=== PATIENT | male | born 1965 | race Caucasian/White ===

== ENCOUNTER 2016-12-02 22:42 | Emergency (ER) | payer BC, OTHER, MEDICAID ==
[~2016-12-02] VITALS: Ht 172.7 cm; Wt 55.0 kg
--- NOTE | 2016-12-02 23:22 | RADRPT ---
PROCEDURE: XR Chest. CLINICAL INDICATION: Sepsis TECHNIQUE: AP Portable chest. COMPARISON: None available FINDINGS: The soft tissues and bones are remarkable for a tracheostomy tube 3.7 cm above the alex. A right central venous catheter is present tip in the superior vena cava. No pneumothorax is present. Low mary ng volumes are present with bibasilar discoid atelectasis. No pleural effusions are present. The me diastinum and heart are normal. IMPRESSION: 1. Tracheostomy tube and right central venous catheter as described above without pneumothorax. 2. Low lung volumes and bibasilar discoid atelectasis. RPTAT: HDC .Lavern Ramirez MD, Date Time Electronically viewed and signed by .Lavern Ramirez MD, on 12/02/2016 23:21 .C/
[2016-12-02] MEDS ORDERED: ACETAMINOPHEN 650 MG SUPP PR ONE (23:30)
[2016-12-02 23:35] VITALS: Ht 172.7 cm; Wt 55.0 kg
[2016-12-02] MEDS ORDERED: CEFEPIME 2GM/50 ML (PMX) 50 ML IVPB STA (23:43)
[2016-12-02 23:52] LABS: ADD UMIC YES; URINE BILIRUBIN (Dip) NEGATIVE (NEGATIVE); URINE BLOOD (Dip) 3+ (NEGATIVE); URINE COLOR LT. YELLOW (YELLOW); URINE GLUCOSE (Dip) NEGATIVE (NEGATIVE); URINE KETONES (Dip) NEGATIVE (NEGATIVE); URINE LEUKOCYTE ESTERASE (Dip) 3+ (NEGATIVE); URINE NITRITE (Dip) NEGATIVE (NEGATIVE); URINE TOTAL PROTEIN (Dip) 1+ (NEGATIVE); URINE UROBILINOGEN (Dip) 0.2 E.U./dL (0.1-1.0)
[2016-12-02 23:58] LABS: HEMATOCRIT 43.9 % (42.0-52.0); HEMOGLOBIN 14.6 g/dl (14.0-18.0); LYMPHOCYTES % 4.8 % (15.0-51.0); MEAN CORPUSCULAR HEMOGLOBIN 32.6 pg (29.0-33.0); MEAN CORPUSCULAR HGB CONC 33.2 g/dl (32.0-37.0); MEAN CORPUSCULAR VOLUME 98.3 fl (82.0-101.0); MEAN PLATELET VOLUME 9.1 fl (7.4-10.4); MONOCYTE # 1.1 10^3/ul (0.3-0.9); MONOCYTES % 5.5 % (0.0-11.0); NEUTROPHILS % 89.7 % (39.0-77.0); PLATELET COUNT 493 10^3/UL (140-440); RED BLOOD COUNT 4.47 10^6/ul (4.70-6.10); RED CELL DISTRIBUTION WIDTH 14.6 % (11.5-14.5)
[2016-12-03] MEDS ORDERED: VANCOMYCIN 1 GM (PMX) 250 ML IVPB ONE
[2016-12-03] MEDS ORDERED: SOD CHLORIDE 0.9% 1,710 ML IV ONE
[2016-12-03 00:04] LABS: CONDITION 1; LH ANALYZER COMMENTS 1; SUSPECT 1
[2016-12-03 00:07] LABS: ALBUMIN 4.1 g/dl (3.3-4.9)
[2016-12-03 00:08] LABS: POTASSIUM 5.7 mmol/L (3.5-5.1)
[2016-12-03 00:10] LABS: ALBUMIN/GLOBULIN RATIO 0.89; BILIRUBIN,INDIRECT 0.2 mg/dl (0-1.1); BILIRUBIN,TOTAL 0.2 mg/dl (0.2-1.3); CREATININE 4.13 mg/dl (0.61-1.24); TOTAL PROTEIN 8.7 g/dl (6.1-8.1)
[2016-12-03 00:11] LABS: CALCIUM 10.4 mg/dl (8.4-10.2)
[2016-12-03 00:13] LABS: INR 1.4; PROTIME 17.2 Sec (12.2-14.2); PT RATIO 1.3
[2016-12-03 00:14] LABS: PARTIAL THROMBOPLASTIN TIME 33.8 Sec (25.0-35.0)
[2016-12-03 00:20] LABS: TROPONIN-I 0.114 ng/ml (0.00-0.12)
[2016-12-03 00:29] LABS: SQUAMOUS EPITHELIAL CELL,UR FEW; URINE RBCS >200 /HPF (0)
--- NOTE | 2016-12-03 03:25 | ERA ---
ER Documentation Chief Complaint Date/Time DATE: 12/03/16 TIME: 03:23 Chief Complaint [facility] & hematuria[facility] There is a 51-year-old male sent in from senior living facility for fever and hematuria. Patient is a tracheostomy to vent patient. History is limited secondary to patient's current baseline mental status. History per snf transfer sheet. ROS All systems reviewed and are negative except as per history of present illness. Medications Home Meds Reported Medications Acetaminophen* (Acetaminophen*) 650 Mg Tablet, 650 MG PO TRACH CHANGE, #30 TAB 12/03/16 Acetaminophen* (Acetaminophen*) 650 Mg Tablet, 650 MG GTB Q4 Y for PAIN AND OR ELEVATED TEMP, #30 TAB 12/03/16 Acetaminophen* (Acetaminophen*) 500 MG Extra Strength Tablet, 1000 MG PO Q4 Y for PAIN AND OR ELEVATED TEMP, TAB 12/03/16 Cran/Vitc/Mannose/Inulin/Brom (Uti-Stat Liquid) 3,875 Mg/30 Ml Liquid, 3875 MG GTB BID 12/03/16 Ascorbic Acid* (Vitamin C*) 500 Mg Capsule.sa, 500 MG GTB DAILY, CAP 12/03/16 Zinc Sulfate* (Zinc Sulfate*) 220 Mg Tablet, 220 MG GTB DAILY, TAB 12/03/16 Hydrocodone/Acetaminophen ([place] 5-325 Tablet) 1 Each Tablet, 1 EACH GTB Q12 Y for PAIN, TAB 12/03/16 Multivitamins* (Theragran*) 1 Tab Tab, 1 TAB GTB DAILY, TAB 12/03/16 Modafinil* (Modafinil*) 100 Mg Tablet, 100 MG GTB DAILY, TAB 12/03/16 Polyethylene Glycol* (Miralax*) 17 Gm Powd.pack, 17 GM GTB BID Y for CONSTIPATION, #60 PACKET 12/03/16 Magnesium Hydroxide* (Milk Of Magnesia*) 400 Mg/5 Ml Oral.susp, 30 ML GTB DAILY , ML 12/03/16 Metoclopramide Hcl* (Metoclopramide Hcl*) 10 Mg Tablet, 10 MG GTB Q8 Y for NAUSEA AND OR VOMITING, TAB 12/03/16 Lansoprazole* (Lansoprazole*) 30 Mg Capsule.dr, 30 MG GTB DAILY, CAP 12/03/16 Glipizide* (Glipizide*) 5 Mg Tablet, 2.5 MG GTB AC BREAKFAST LUNCH, TAB 12/03/16 Na Phos,M-B/Na Phos,Di-Ba (ENEMA) 133 Ml Enema, 133 ML RC PRN, ENEMA 12/03/16 Bisacodyl (Dulcolax) 10 Mg Supp.rect, 10 MG RC PRN, SUPP.RECT 12/03/16 Chlorhexidine Gluconate (Peridex) 473 Ml Mouthwash, 473 ML MM Q12, BOTTLE 12/03/16 Benazepril Hcl* (Benazepril Hcl*) 5 Mg Tablet, 5 MG GTB DAILY, #30 TAB 12/03/16 Amlodipine Besylate* (Amlodipine Besylate*) 10 Mg Tablet, 10 MG GTB DAILY, #30 TAB 12/03/16 Amantadine Hcl* (Amantadine Hcl*) 100 Mg Tablet, 100 MG GTB BID, #60 TAB 12/03/16 Allergies Allergies: Coded Allergies: No Known Allergy (Unverified , 12/03/16) PMhx/Soc History of Surgery: Yes (gastrectomy, tracheostomy) Anesthesia Reaction: No Hx Neurological Disorder: Yes (quadraplegic) Hx Respiratory Disorders: Yes (arf) Hx Cardiac Disorders: Yes (htn) Hx Miscellaneous Medical Probl: Yes (dm, hydrocephally, anemia, sacral pressure ulcer, contractures) Hx Alcohol Use: No Hx Substance Use: No Hx Tobacco Use: No Smoking Status: Never smoker Physical Exam Vitals Vital Signs Date Time Temp Pulse Resp B/P Pulse Ox O2 Delivery O2 Flow Rate FiO2 12/03/16 17:10 120 38 100 50 12/03/16 17:00 99.0 97 36 138/118 97 Mechanical Ventilator 5.0 12/03/16 15:30 99.0 115 36 142/130 98 Mechanical Ventilator 5.0 12/03/16 15:10 118 40 100 50 12/03/16 13:30 101.5 120 36 82/22 98 Mechanical Ventilator 12/03/16 13:00 132 38 100 50 12/03/16 12:30 101.0 124 36 95/78 100 Mechanical Ventilator 12/03/16 11:30 100.9 125 32 100/76 96 Mechanical Ventilator 12/03/16 11:00 126 32 86/73 96 Mechanical Ventilator 12/03/16 10:55 126 36 99 100 12/03/16 10:00 126 32 94/76 100 Mechanical Ventilator 12/03/16 09:15 130 38 95 100 12/03/16 09:00 103.1 136 32 130/78 100 Mechanical Ventilator 12/03/16 08:30 134 32 114/62 100 Mechanical Ventilator 12/03/16 07:30 140 36 109/90 96 Mechanical Ventilator 12/03/16 07:30 133 40 90 100 12/03/16 06:30 137 36 107/80 94 Trach Collar 5.0 12/03/16 05:49 102.9 122 36 125/57 95 Room Air 3.0 Trach Collar 12/03/16 03:08 100.3 130 24 119/88 95 Room Air 3.0 Trach Collar 12/03/16 01:42 101.0 120 26 118/82 95 Trach Collar 3.0 12/03/16 00:18 118 25 110/76 95 Trach Collar 12/02/16 23:35 103.3 139 40 113/91 97 12/02/16 23:02 96 3.0 Physical Exam Const: [] Head: Atraumatic Eyes: Normal Conjunctiva ENT: Normal External Ears, Nose and Mouth. trach site C/D/I Neck: Full range of motion..~ No meningismus. Resp: Decreased breath sounds in all lung klein. Cardio: Regular rate and rhythm, no murmurs Abd: Soft, non tender, non distended. Normal bowel sounds Skin: No petechiae or rashes Back: No midline or flank tenderness Ext: No cyanosis, or edema Neur: Awake and alert Psych: Normal Mood and Affect Result Diagram: 12/03/16 0730 12/03/16 1530 Results 24 hrs Laboratory Tests Test 12/02/16 23:30 12/02/16 23:40 12/03/16 01:00 12/03/16 05:33 Urine Bilirubin NEGATIVE Urine Clarity CLEAR Urine Color LT. YELLOW Urine Glucose NEGATIVE% Urine Hemoglobin 3+ Urine Ketones NEGATIVE Urine Leukocyte Esterase 3+ Urine Microscopic RBC >200/HPF Urine Microscopic WBC >50/HPF Urine Nitrite NEGATIVE Urine Other FEW Urine Specific [place] 1.010 Urine Squamous Epithelial Cells FEW Urine Total Protein 1+ Urine Urobilinogen 0.2 E.U./dL Urine pH 5.5 Activated Partial Thromboplast Time 33.8Sec Alanine Aminotransferase (ALT/SGPT) 69IU/L Albumin 4.1g/dl Albumin/Globulin Ratio 0.89 Alkaline Phosphatase 158IU/L Anion Gap 32 Aspartate Amino Transf (AST/SGOT) 63IU/L Basophils # 0.010^3/ul Basophils % 0.0% Blood Morphology Comment Blood Urea Nitrogen 135mg/dl Calcium Level 10.4mg/dl Carbon Dioxide Level 24mmol/L Chloride Level 107mmol/L Creatinine 4.13mg/dl Direct Bilirubin 0.00mg/dl Eosinophils # 0.010^3/ul Eosinophils % 0.0% Globulin 4.60g/dl Glucose Level 296mg/dl Hematocrit 43.9% Hemoglobin 14.6g/dl INR International Normalized Ratio 1.40 Indirect Bilirubin 0.2mg/dl Lactic Acid Level 5.9mmol/L 3.6mmol/L 3.4mmol/L Lymphocytes # 1.010^3/ul Lymphocytes % 4.8% Mean Corpuscular Hemoglobin 32.6pg Mean Corpuscular Hemoglobin Concent 33.2g/dl Mean Corpuscular Volume 98.3fl Mean Platelet Volume 9.1fl Monocytes # 1.110^3/ul Monocytes % 5.5% Neutrophils # 18.010^3/ul Neutrophils % 89.7% Nucleated Red Blood Cells # 0.010^3/ul Nucleated Red Blood Cells % 0.0/100WBC Platelet Count 11991^3/UL Potassium Level 5.7mmol/L Prothrombin Time 17.2Sec Prothrombin Time Ratio 1.3 Red Blood Count 4.4710^6/ul Red Cell Distribution Width 14.6% Sodium Level 157mmol/L Total Bilirubin 0.2mg/dl Total Protein 8.7g/dl Troponin I 0.114ng/ml White Blood Count 20.010^3/ul Test 12/03/16 07:07 12/03/16 07:30 12/03/16 07:31 12/03/16 11:05 Arterial Blood HCO3 16.9mmol/L Arterial Blood Base Excess -8.2mmol/L Arterial Blood Oxygen Saturation 99.0mmHG Demetrio Test N/A Arterial Blood Gas Puncture Site Femoral Arterial Blood Carboxyhemoglobin 0.3% Arterial Blood Date Drawn 12/03/2016 1:04:18 PM Arterial Blood Methemoglobin 0.4% Arterial Blood pCO2 (Temp correct) 33.5mmhg Arterial Blood pH (Temp corrected) 7.320 Arterial Blood pO2 (Temp corrected) 209.8mmHG Blood Gas A-a O2 Differential 469.7mmHg Blood Gas Actual Respiration Rate 36 Blood Gas Critical Value Read Back DR. Damon ALVARADO Blood Gas Inspiratory Pressure 26.0 Blood Gas Low PEEP Setting 5.0cmH2O Blood Gas Modality VENT - AC Blood Gas Notified Time 11/26/2016 1:12:26 PM Blood Gas Notified Whom TRINH RT Blood Gas Respiration Rate 16.0 Blood Gas Specimen Source Blood arterial Blood Gas Temperature 37.0C Blood Gas Tidal Volume 500.0mL FiO2 100.0% Oxyhemoglobin Percent 98.3% Total Hemoglobin 13.8g/dl Alanine Aminotransferase (ALT/SGPT) 223IU/L Albumin 3.5g/dl Albumin/Globulin Ratio 1.02 Alkaline Phosphatase 123IU/L Anion Gap 29 Aspartate Amino Transf (AST/SGOT) 189IU/L Basophils # 0.010^3/ul Basophils % 0.3% Blood Urea Nitrogen 152mg/dl Calcium Level 9.2mg/dl Carbon Dioxide Level 20mmol/L Chloride Level 112mmol/L Creatinine 4.60mg/dl Differential Comment AUTO w/SCAN Direct Bilirubin 0.00mg/dl Eosinophils # 0.010^3/ul Eosinophils % 0.0% Globulin 3.40g/dl Glucose Level 347mg/dl Hematocrit 41.8% Hemoglobin 13.9g/dl Hemoglobin A1c 6.0% Indirect Bilirubin 0.3mg/dl Lymphocytes # 1.310^3/ul Lymphocytes % 9.0% Magnesium Level 3.7mg/dl Mean Corpuscular Hemoglobin 32.7pg Mean Corpuscular Hemoglobin Concent 33.3g/dl Mean Corpuscular Volume 98.2fl Mean Platelet Volume 9.0fl Monocytes # 1.010^3/ul Monocytes % 6.9% Neutrophils # 12.010^3/ul Neutrophils % 83.8% Nucleated Red Blood Cells # 0.010^3/ul Nucleated Red Blood Cells % 0.0/100WBC Platelet Count 92285^3/UL Potassium Level 5.9mmol/L Red Blood Count 4.2610^6/ul Red Cell Distribution Width 14.2% Sodium Level 155mmol/L Total Bilirubin 0.3mg/dl Total Protein 6.9g/dl White Blood Count 14.410^3/ul Bedside Glucose 337mg/dL Urine Bacteria FEW Urine Bilirubin 1+ Urine Clarity CLEAR Urine Color RED Urine Glucose NEGATIVE% Urine Hemoglobin 3+ Urine Ictotest NEGATIVE Urine Ketones TRACE Urine Leukocyte Esterase 3+ Urine Microscopic RBC >200/HPF Urine Microscopic WBC 10-25/HPF Urine Nitrite NEGATIVE Urine Random Creatinine 31.50mg/dl Urine Random Sodium 119mmol/L Urine Specific [place] 1.020 Urine Squamous Epithelial Cells FEW Urine Total Protein mg/dl Urine Urobilinogen 1.0 E.U./dL Urine pH 6.5 Test 12/03/16 12:00 12/03/16 12:17 12/03/16 15:30 Anion Gap 30 Blood Urea Nitrogen 154mg/dl Calcium Level 9.1mg/dl Carbon Dioxide Level 20mmol/L Chloride Level 112mmol/L Creatinine 4.40mg/dl Free Thyroxine 1.15ng/dl Glucose Level 343mg/dl Potassium Level 6.3mmol/L 5.9mmol/L Sodium Level 156mmol/L Bedside Glucose 222mg/dL Current Medications Medications (Trade) Dose Ordered Sig/Dorota Route PRN Reason Start Time Stop Time Status Last Admin Dose Admin Acetaminophen 650 mg 650 mg ONCE ONCE [place] 12/02/16 23:30 12/02/16 23:31 DC 12/02/16 23:30 Sodium Chloride 1,710 ml @ 1,710 mls/hr BOLUS X1 ONCE IV 12/03/16 00:00 12/03/16 00:59 DC 12/02/16 23:58 Cefepime HCl 50 ml @ 100 mls/hr ONCE STAT IVPB 12/02/16 23:43 12/03/16 00:12 DC 12/02/16 23:57 Vancomycin HCl (Vancocin) 250 ml @ 125 mls/hr ONCE ONCE IVPB 12/03/16 00:00 12/03/16 01:59 DC 12/03/16 00:24 Acetaminophen 650 mg 650 mg ONCE ONCE [place] 12/03/16 06:00 12/03/16 06:01 DC 12/03/16 05:45 Dextrose (D5W) 1,000 ml @ 100 mls/hr Q10H IV 12/03/16 07:00 12/03/16 10:46 DC 12/03/16 07:34 IV Flush (NS 3 ml) 3 ml PER PROTOCOL IV 12/03/16 07:00 Lorazepam (Ativan) 0.5 mg Q6H PRN IV ANXIETY 12/03/16 07:00 Ondansetron HCl (Zofran Inj) 4 mg Q6H PRN IV NAUSEA AND/OR VOMITING 12/03/16 07:00 Acetaminophen (Tylenol Supp) 650 mg Q6H PRN [place] PAIN LEVEL 1-3 OR FEVER 12/03/16 07:00 12/03/16 12:31 Famotidine (Pepcid Iv) 20 mg DAILY IV 12/03/16 09:00 12/03/16 08:42 Heparin Sodium (Porcine) (Heparin (5000 Units/0.5 ml)) 5,000 unit Q12 SC 12/03/16 09:00 12/03/16 13:21 DC 12/03/16 08:43 Levalbuterol (Xopenex Neb) 0.63 mg Q3H RESP THERAPY PRN HHN SOB, wheezing 12/03/16 07:00 Vancomycin HCl VANCOMYCIN PER PHARMACY PER PROTOCOL XX 12/03/16 07:00 Cefepime HCl (Maxipime 1gm/50 ml (Pmx)) 50 ml @ 100 mls/hr 21 IVPB 12/03/16 21:00 Sodium Polystyrene Sulfonate (Kayexalate) 30 gm ONCE ONCE GTB 12/03/16 07:00 12/03/16 07:05 DC 12/03/16 07:37 Insulin Aspart (Novolog Insulin Pen) NOVOLOG *MODERATE* ALGORITHM WITH MEALS BEDTIME SC 12/03/16 08:00 Insulin Glargine (Lantus) 15 unit DAILY@08 SC 12/03/16 07:00 12/03/16 07:37 Miscellaneous Information (* Miscellaneous Pharmacy Order) HYPOGLYCEMIA PROTOCOL w... ONCE ONCE XX 12/03/16 07:00 12/03/16 07:01 DC Miscellaneous Information (* Miscellaneous Pharmacy Order) Discontinue Glyburide, Glipizide,... ONCE ONCE XX 12/03/16 07:00 12/03/16 07:01 DC Insulin Aspart (Novolog Insulin Pen) 8 unit ONCE STAT SC 12/03/16 06:46 12/03/16 07:04 DC 12/03/16 07:36 Miscellaneous Information 1 ea NOTE XX 12/03/16 07:30 Glucose (Glutose) 15 gm Q15M PRN PO DECREASED GLUCOSE 12/03/16 07:30 Glucose (Glutose) 22.5 gm Q15M PRN PO DECREASED GLUCOSE 12/03/16 07:30 Dextrose (D50w Syringe) 25 ml Q15M PRN IV DECREASED GLUCOSE 12/03/16 07:30 Dextrose (D50w Syringe) 50 ml Q15M PRN IV DECREASED GLUCOSE 12/03/16 07:30 Glucagon (Glucagen) 1 mg Q15M PRN IM DECREASED GLUCOSE 12/03/16 07:30 Glucose 15 gm 15 gm Q15M PRN BUCCAL DECREASED GLUCOSE 12/03/16 07:30 Sodium Chloride 1,000 ml @ 1,000 mls/hr Q1H STAT IV 12/03/16 08:43 12/03/16 09:42 DC 12/03/16 08:54 Sodium Chloride 1,000 ml @ 150 mls/hr Q6H40M IV 12/03/16 11:00 12/03/16 17:58 Norepinephrine 250 ml @ 7.5 mls/hr ONCE STAT IV 12/03/16 13:11 12/04/16 22:30 12/03/16 13:23 Norepinephrine/ Dextrose (Levophed/D5W) 500 ml @ 1.87 mls/hr TITRATE IV 12/03/16 16:15 12/03/16 16:02 Amiodarone HCl (Cordarone) 150 mg STK-MED ONCE .ROUTE 12/03/16 18:09 12/03/16 18:10 DC IV Flush 10 ml 10 ml PRN PRN IV IV PROTOCOL 12/03/16 18:30 Sodium Chloride (NS) 100 ml @ ud STK-MED ONCE .ROUTE 12/03/16 19:00 12/03/16 19:01 DC 12/03/16 17:45 Procedures/MDM EKG: Rate/Rhythm: [Normal Sinus Rhythm] QRS, ST, T-waves: [No changes consistent w/ acute ischemia] Impression: [No evidence of ischemia or arrhythmia] Chest X-ray 1V Interpreted by me: Soft Tissue: No acute abnormalities Bones: No acute abnormalities Mediastinum/Cardiac Silhouette/Lungs: [No acute abnormalities] Patient's infectious symptoms have not stabilized and the patient is at risk of rapid decompensation. The patient will be admitted for careful hydration, antibiotic therapy, and infectious source control. Severe Sepsis Assessment: Infectious Source: [pyleonephritis] End organ damage indicated by: [Lactate > 2.0 mmol/L Severe Sepsis Managment: Blood Cultures X 2 before broad spectrum antibiotics initiated within 3 hours of recognition. 30 ml/kg NS bolus Completed Initial Lactate: Elevated Repeat Lactate pending Critical Care: Time: 45 minutes Treatments/Evaluations: Emergent fluid management, while maintaining close respiratory support. Immediate broad spectrum antibiotic therapy. Simultaneous assessment for possible sources in order to direct therapy. Consideration for invasive and chemical support to prevent respiratory or cardiac collapse. Septic Shock Assessment (1 hour post 30 ml/kg fluid bolus): Perfusion Reassessment for Septic Shock: Accepting Care Team: Current data and ongoing care discussed. Time: 230 Primary Provider: Hospitalist Consulting: [XOXOXO] Outstanding Data: none Departure Diagnosis: Primary Impression: Sepsis Qualified Code: A41.9 - Sepsis, due to unspecified organism Condition: Critical STANISLAV CALDERON Dec 03, 2016 03:25
[2016-12-03] MEDS ORDERED: ACETAMINOPHEN 650 MG SUPP PR ONE (06:00)
[2016-12-03] MEDS ORDERED: INSULIN ASPART [NOVOLOG] 3 ML PEN SC STA (06:46)
[2016-12-03] MEDS ORDERED: LEVALBUTEROL (NEB) 0.63 MG/3 ML AMP HHN PRN (07:00)
[2016-12-03] MEDS ORDERED: NACL 0.9% 3 ML SYG IV SCH (07:00)
[2016-12-03] MEDS ORDERED: ACETAMINOPHEN 650 MG SUPP PR PRN (07:00)
[2016-12-03] MEDS ORDERED: LORAZEPAM 2 MG INJ IV PRN (07:00)
[2016-12-03] MEDS ORDERED: NA POLYST SULFON 15 GM/60 ML BTL GTB ONE (07:00)
[2016-12-03] MEDS ORDERED: VANCOMYCIN IV PER PHARMACY XX SCH (07:00)
[2016-12-03] MEDS ORDERED: ONDANSETRON 4 MG INJ IV PRN (07:00)
[2016-12-03] MEDS ORDERED: DEXTROSE 5% 1,000 ML IV SCH (07:00)
[2016-12-03] MEDS ORDERED: AMAN100T GTB (07:11)
[2016-12-03] MEDS ORDERED: AMLO-147 GTB (07:12)
[2016-12-03] MEDS ORDERED: BENA5TAB2 GTB (07:12)
[2016-12-03] MEDS ORDERED: CHLO473M4 MM (07:13)
[2016-12-03] MEDS ORDERED: BISA10SU55 RC (07:20)
[2016-12-03] MEDS ORDERED: NA P133E5 RC (07:21)
[2016-12-03] MEDS ORDERED: GLIP5TAB13 GTB (07:22)
[2016-12-03] MEDS ORDERED: LANS30CA GTB (07:23)
[2016-12-03] MEDS ORDERED: METO10TA96 GTB (07:24)
[2016-12-03] MEDS ORDERED: MAGN400O4 GTB (07:24)
[2016-12-03] MEDS ORDERED: POLY17PO6 GTB (07:25)
[2016-12-03] MEDS ORDERED: [UNRECOGNIZED DRUG - CODE] GTB (07:25)
[2016-12-03] MEDS ORDERED: HYDR-906 GTB (07:26)
[2016-12-03] MEDS ORDERED: MULTI GTB (07:26)
[2016-12-03] MEDS ORDERED: ZINC220T GTB (07:27)
[2016-12-03] MEDS ORDERED: ASCO500C7 GTB (07:27)
[2016-12-03] MEDS ORDERED: CRAN3875 GTB (07:28)
[2016-12-03] MEDS ORDERED: ACET-141 PO (07:28)
[2016-12-03] MEDS ORDERED: ACET-2047 GTB (07:29)
[2016-12-03] MEDS ORDERED: GLUCOSE GEL 15 GRAM TUBE PO PRN ×2 (07:30)
[2016-12-03] MEDS ORDERED: GLUCOSE GEL 15 GRAM TUBE BUCCAL PRN (07:30)
[2016-12-03] MEDS ORDERED: ACET-2047 PO (07:30)
[2016-12-03] MEDS ORDERED: DEXTROSE 50% 50 ML SYRINGE IV PRN ×2 (07:30)
[2016-12-03] MEDS ORDERED: GLUCAGON 1 MG INJ IM PRN (07:30)
[2016-12-03] MEDS: INSULIN GLARGINE [LANtus] 3 ML PEN SC SCH ×2 (07:37→08:00)
[2016-12-03 07:47] LABS: BASOPHILS % 0.3 % (0.0-2.0); HEMATOCRIT 41.8 % (42.0-52.0); HEMOGLOBIN 13.9 g/dl (14.0-18.0); LYMPHOCYTES # 1.3 10^3/ul (0.8-2.9); MEAN CORPUSCULAR HEMOGLOBIN 32.7 pg (29.0-33.0); MEAN CORPUSCULAR HGB CONC 33.3 g/dl (32.0-37.0); MEAN CORPUSCULAR VOLUME 98.2 fl (82.0-101.0); MONOCYTES % 6.9 % (0.0-11.0); NEUTROPHILS % 83.8 % (39.0-77.0); PLATELET COUNT 407 10^3/UL (140-440); RED BLOOD COUNT 4.26 10^6/ul (4.70-6.10); RED CELL DISTRIBUTION WIDTH 14.2 % (11.5-14.5); UNCORRECTED WBC 14.4 10^3/ul (4.8-10.8); WHITE BLOOD COUNT 14.4 10^3/ul (4.8-10.8)
[2016-12-03 07:50] LABS: CONDITION 1; LH ANALYZER COMMENTS 1; SUSPECT 1
[2016-12-03 08:00] LABS: ALBUMIN 3.5 g/dl (3.3-4.9); POTASSIUM 5.9 mmol/L (3.5-5.1)
[2016-12-03] MEDS: INSULIN ASPART [NOVOLOG] 3 ML PEN SC SCH ×2 (08:00→12:00)
--- NOTE | 2016-12-03 08:01 | RADRPT ---
PROCEDURE: Retroperitoneal US. CLINICAL INDICATION: Renal insufficiency TECHNIQUE: Multiple sonographic images of the kidneys and retroperitoneum were obtained. The imag es were reviewed on a PACS workstation. COMPARISON: No prior studies are available for comparison. FINDINGS: The kidneys are normal in size, contour, cortical thickness and cortical echogenicity. The right kidney measures 10.3 cm. The left kidney measures 11.0 cm. No kidney stones are visualized. There is no evidence for hydronephrosis. The urinary bladder is decompressed by a Fink catheter and not seen. RPTAT: AA IMPRESSION: Unremarkable retroperitoneal ultrasound. .Mao Razo MD, MD Date Time Electronically viewed and signed by .Mao Razo MD, on 12/03/2016 08:01 .S/
[2016-12-03 08:02] LABS: CREATININE 4.6 mg/dl (0.61-1.24)
[2016-12-03 08:03] LABS: ALBUMIN/GLOBULIN RATIO 1.02; BILIRUBIN,INDIRECT 0.3 mg/dl (0-1.1); BILIRUBIN,TOTAL 0.3 mg/dl (0.2-1.3); CALCIUM 9.2 mg/dl (8.4-10.2); TOTAL PROTEIN 6.9 g/dl (6.1-8.1)
[2016-12-03 08:04] LABS: MAGNESIUM 3.7 mg/dl (1.7-2.5)
[2016-12-03] MEDS ORDERED: SOD CHLORIDE 0.9% 1,000 ML IV STA (08:43)
[2016-12-03] MEDS ORDERED: FAMOTIDINE 20 MG INJ IV SCH (09:00)
[2016-12-03] MEDS ORDERED: HEPARIN 5,000 UNIT/0.5 ML SYG SC SCH (09:00)
--- NOTE | 2016-12-03 09:37 | HP ---
DATE OF ADMISSION: 12/02/2016 TIME SEEN: 5 a.m. CHIEF COMPLAINT: The patient brought to SNF/rehab for fever and hematuria. HISTORY OF PRESENT ILLNESS: The patient is a 51-year-old male with a history of respiratory failure , status post tracheostomy, diabetes, quadriplegia, hypertension, hydrocephaly, and sacral decubitus ulcer who was from [facility] for fever and hematuria. Most of the information is gathered f rom the ER physician, EMS, and chart review because of patient's baseline mental state. When the alexus lerma was brought to the ER, he was febrile with a temperature of 103.3, heart rate was 139. He had labored breathing and tachypneic with respiratory rate of 40. His blood pressure was 113/91, and o xygen saturation 96% on 3 L. Laboratory value shows a WBC of 20,000, his sodium is 157, potassium 5 .7, his BUN 135, creatinine 4.13, glucose 296, initial lactic acid 5.9, this 3rd one is 3.4. Chest x-ray showed low lung volume with bibasal discoid atelectasis. The patient was given IV fluids and was started on vancomycin and cefepime. His urinalysis was consistent with UTI. REVIEW OF SYSTEM: A 12-point review of systems was performed, negative except as mentioned in the H PI. PAST MEDICAL HISTORY: As per HPI. PAST SURGICAL HISTORY: As per HPI. SOCIAL HISTORY: No reported history of tobacco, alcohol, or illicit drug use. ALLERGIES: NO KNOWN DRUG ALLERGIES. HOME MEDICATIONS: Currently, there is none listed. PHYSICAL EXAMINATION: VITAL SIGNS: Blood pressure 125/57, heart rate 122, respiratory rate 36, temperature 102.9, oxygen saturation 95% on 3 L through trach. GENERAL: The patient lying in bed, appears to show some labored breathing, not fully oriented. DERICK NT: Pupils are reactive to light. No scleral icterus. CARDIOVASCULAR: Tachycardic with regular rhythm. LUNGS: No wheezes, rhonchi, or rales were heard. ABDOMEN: Somehow hard, not really soft. There is a G-tube in place. There are positive bowel ping nds. NEUROLOGIC: Unable to fully assess due to the patient's condition, note that he is also quadriplegi c. LABORATORY: Pertinent positive results as mentioned in the HPI. IMAGING: Chest x-ray with results as mentioned in the HPI. IMPRESSION 1. Sepsis secondary to urinary tract infection. 2. Renal insufficiency. 3. Hyperkalemia. 4. Hypernatremia. 5. Lactic acidosis. 6. Chronic trach-dependent respiratory failure. 7. Diabetes, with hypoglycemia. 8. History of hypertension. PLAN: He will be placed on broad-spectrum antibiotics. We will follow up on culture results. He w ill receive IV fluids with D5W given he has a significant hypernatremia. Note that he did receive w eight-based normal saline IV fluid while he was in the ER, so his sodium might get worse before it s tarts getting better. Will place pulmonary consult given his chronic respiratory failure. We will also place a nephrology consult given his significant renal insufficiency. Will correct electrolyte s, mainly in the case of hyperkalemia. He will be placed on insulin for his diabetes. Will check h is A1c. We will trend his lactic acid. We will place an ID consult. Further workup and management per clinical course. Dictated By: STANISLAV JACKSON/VIOLET Conf#: [id number] DID#: [id number]
[2016-12-03] MEDS: SOD CHLORIDE 0.45% 1,000 ML IV SCH ×2 (10:55→17:58)
[2016-12-03 11:49] LABS: ADD UMIC YES; URINE BILIRUBIN (Dip) 1+ (NEGATIVE); URINE BLOOD (Dip) 3+ (NEGATIVE); URINE COLOR RED (YELLOW); URINE GLUCOSE (Dip) NEGATIVE (NEGATIVE); URINE KETONES (Dip) TRACE (NEGATIVE); URINE LEUKOCYTE ESTERASE (Dip) 3+ (NEGATIVE); URINE NITRITE (Dip) NEGATIVE (NEGATIVE); URINE TOTAL PROTEIN (Dip) 2+ (NEGATIVE); URINE UROBILINOGEN (Dip) 1.0 E.U./dL (0.1-1.0)
[2016-12-03 12:14] LABS: ICTOTEST NEGATIVE (NEGATIVE)
[2016-12-03 12:15] LABS: BACTERIA,URINE FEW; SQUAMOUS EPITHELIAL CELL,UR FEW; URINE RBCS >200 /HPF (0)
[2016-12-03 12:17] LABS: CREATININE 4.4 mg/dl (0.61-1.24)
[2016-12-03 12:18] LABS: CALCIUM 9.1 mg/dl (8.4-10.2)
[2016-12-03 12:21] LABS: POTASSIUM 6.3 mmol/L (3.5-5.1)
[2016-12-03] MEDS ORDERED: NORepinephrine 8MG/250 ML (PMX 250 ML IV STA (13:11)
[2016-12-03 13:19] LABS: AADO2 Arterial 469.7 mmHg (7.0-24.0); Arterial Base Excess -8.2 mmol/L (-3.0-3); Arterial COHb 0.3 % (0.0-3.0); Arterial Fraction of Oxyhgb 98.3 % (93.0-99.0); Arterial HCO3 16.9 mmol/L (22.0-26.0); Arterial MetHb 0.4 % (0.0-1.5); Arterial Total Hemglobin 13.8 g/dl (12.0-18.0); MODE VENT - AC
--- NOTE | 2016-12-03 13:22 | QN ---
Documentation Comment The patient was seen. Labs reviewed. Pulmonology, infectious diseases, and urology consult called. Case discussed with Dr. Tinsley. STAR COSBY NP Dec 03, 2016 13:22
--- NOTE | 2016-12-03 13:45 | CONS ---
DATE OF ADMISSION: 12/02/2016 DATE OF CONSULTATION: 12/03/2016 NEPHROLOGY CONSULTATION REASON FOR CONSULTATION: Acute kidney injury, hyperkalemia. REQUESTING PHYSICIAN: Dr. Odom HISTORY OF PRESENT ILLNESS: This is a 51-year-old unfortunate male with a past medical history of c hronic respiratory failure, status post tracheostomy, history of dysphagia, status post PEG, history of diabetes, history of hypertension, history of decubitus wound, history of quadriplegia, history of hydrocephalus, who presents to [facility] Emergency Room with fever and hematur ia. The patient upon arrival to the emergency room was noted to be febrile with a T-max of 103. Th e patient was tachycardic, was noted to be hypotensive. The patient in the emergency room had labor atory data drawn which showed a sodium of 157, potassium of 5.7, BUN 135, creatinine 4.13, and a lac tic acid 5.9. The patient also had a white count of 20,000 and urinalysis does showed pyuria, hemat uria. X-ray was obtained which showed a tracheostomy and discoid atelectasis. The patient in the e mergency room was diagnosed with severe sepsis, shock. The patient was started on broad-spectrum an tibiotics and IV fluids. In the course of approximately 14 hours, the patient was then placed on a ventilator for support as he was tachypneic. In terms of patient's renal history, the patient's previous baseline creatinine was approximately 0. 6 mg/dL from laboratory from late October. The patient has no prior history of chronic kidney disea se. The patient does have gross hematuria upon arrival. There are no rashes, no hemoptysis or hemat emesis noted. No recent exposure to NSAID use. The patient was on DAYANA inhibitor at his outpatient setting. PAST MEDICAL HISTORY: As stated above, history of chronic respiratory failure, history of encephalo fern, history of dysphagia, history of anemia, history of decubitus wound, history of contractures, diabetes, hydrocephalus, history of hypertension. PAST SURGICAL HISTORY: Status post trach, status post PEG. ALLERGIES: NO KNOWN DRUG ALLERGIES. FAMILY HISTORY: Noncontributory. SOCIAL HISTORY: Lives at a subacute facility. MEDICATIONS: The patient's medications have been reviewed. REVIEW OF SYSTEMS: Unable to do adequate systems as the patient is obtunded. Pertinent positives a s obtained by reviewing medical records, speaking to hospital staff, stated in HPI, otherwise negati ve. PHYSICAL EXAMINATION: VITAL SIGNS: Blood pressure is currently 94/76, respirations 32, pulse 126, temperature 103.1. I's and O's not recorded, the patient has noted about 300 mL of gross hematuria and Fink catheter. HEENT: Head is normocephalic. NECK: Shows a trach. HEART: Tachycardic. LUNGS: Show diminished breath sounds at base. ABDOMEN: Soft, nontender to palpation. Positive PEG. EXTREMITIES: Negative for clubbing, cyanosis, no edema. DERMATOLOGIC: No rashes. MUSCULOSKELETAL: Noted wound. NEUROLOGIC: Limited exam as patient is obtunded. LABORATORY DATA: The patient has sodium 155, potassium 5.9, chloride 112, bicarbonate 20, BUN 152, creatinine 4.60, glucose 347. Hemoglobin A1c 6.0. Lactic acid 3.4, magnesium 2.7. White count 14. 4, hemoglobin 13.9, hematocrit 41.8, platelet count is 407. IMAGING STUDIES: A renal ultrasound shows unremarkable, no hydronephrosis. ASSESSMENT AND PLAN: This is a 51-year-old male who presents with: 1. Oliguric acute kidney injury with previously normal baseline creatinine of 0.7 mg/dL. Etiology of acute kidney injury secondary to acute tubular necrosis due to septic acute kidney injury, ischem ic hypoperfusion. The patient's urinalysis shows gross pyuria and hematuria. The patient is septic . Renal ultrasound shows no evidence of obstruction, no hydronephrosis, and normal renal parenchyma . The possibility of an acute glomerulonephritis or vasculitis is less likely given clinical presen tation, but due to underlying pyuria, hematuria, further evaluation will be done. The patient also has significant acute kidney injury and is hypokalemic. The plan at this point is to continue curre nt medical management, continue broad-spectrum antibiotics, continue aggressive IV hydration. Will repeat a renal panel. If there is no significant improvement in renal function and if patient's hyp erkalemia does not improve, will start the patient on renal replacement therapy. I left a message w ith the patient's family, Сергей Anthony, in order to discuss the possibility of dialysis. We wi ll attempt again to contact her. Will continue to monitor closely. 2. Hypernatremia. Etiology is likely due to insensible loss, sepsis. The patient has a free water deficit of approximately 4 L. At this point, will start the patient on half normal saline at 125 m L an hour. We will monitor serial sodium levels closely to ensure correction of no more than 8 to 1 0 mEq in a 24-hour period. 3. Hypokalemia. Etiology is multifactorial secondary to acute kidney injury, acidosis, and hypergl ycemia. The patient is status post Kayexalate, status post insulin. Plan at this point is to impro ve intensify insulin regimen in order to obtain new glycemia which will help shift potassium intrace llularly. We will discontinue D5W. We will follow up a renal panel. If the patient's potassium le vels do not normalize and the patient remains oliguric, will then initiate renal replacement therapy . We will also check an ABG to see if there is any component of acidosis, acidemia which may be a c ontributing factor. 4. Metabolic acidosis, gap and non-gap, etiology secondary to acute kidney injury, lactic acidosis. Plan is to check an ABG to see if the patient is appropriately compensated. Will continue to [facility] closely. May consider bicarbonate therapy. 5. Severe sepsis. Etiology is likely secondary to urinary tract infection. Continue current medic al management. Continue broad-spectrum antibiotics. Continue IV fluids. We will follow up culture s closely and follow up lactic acidosis. We will check a procalcitonin level. 6. Diabetes. The patient is currently hypoglycemic. Will discontinue D5W. Continue current insul in regimen. Monitor. 7. Ventilator dependent respiratory failure. Vent settings have been reviewed. Will check an ABG. Will follow up with pulmonary. 8. Dysphagia, status post percutaneous endoscopic gastrostomy. 9. History of hypertension. 10. Acute on chronic encephalopathy. Etiology is toxic metabolic. Will continue to monitor. 11. History of hydrocephalus. 12. History of decubitus ulcer. Continue wound care. 13. Quadriplegia. Continue to monitor. Thank you, Dr. Odom, for this interesting consultation. It will be a pleasure to follow patient wit h you throughout the hospital course. Dictated By: WOODROW GU/VIOLET Conf#: [id number] DID#: [id number]
--- NOTE | 2016-12-03 14:06 | CONS ---
Date/Time of Note Date/Time of Note DATE: 12/03/16 TIME: 14:00 Assessment/Plan Assessment/Plan Additional Assessment/Plan Recommendations; next 1. ABG was reviewed FiO2 has been dropped down to 50%. 2. Patient has been adequately fluid resuscitated. Will require Levophed now. 3. Patient currently on broad-spectrum antibiotic coverage. Continue other supportive measures. I did have a detailed discussion with the patient's at bedside and answered all her questions. Consultation Date/Type/Reason Admit Date/Time Date of Consultation: Dec 03, 2016 Type of Consultation: Pulmonary/critical care Reason for Consultation Pulmonary consultation obtained for evaluation of respiratory failure. History presenting; patient is a 51-year-old male who was brought into the ER yesterday sent from the group home with complaints of hypoxemia. On further evaluation here the patient was diagnosed with UTI and sepsis. Vision has been weaned over to T piece recently at the group home however because of severe tachypnea patient was placed back on the ventilator with assist control mode. Patient's was present in the ER. Patient was doing fine until recently when she started noticing shortness of breath. Patient also has been able to communicate fairly well recently. Next Past medical history; next 1. History of chronic respiratory failure recently weaned to T-piece. 2. History of intracranial hemorrhage. 3. History of REGIONAL ENGINEER shunt. 4. 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 5. History of sacral decubitus ulcer. 6. Status post tracheostomy and G-tube placement. 7. No history of any seizures. Medications; were reviewed. Allergies; none. Social history; no history of any smoking or drug abuse. Family history; patient is . Occupational history; patient has a miscellaneous office jobs. Currently on disability. Review of systems; currently unable to be obtained. General examination; young male, on ventilator via tracheostomy unresponsive. Social History Smoking Status: Never smoker Exam/Review of Systems Vital Signs Vitals Vital Signs Date Time Temp Pulse Resp B/P Pulse Ox O2 Delivery O2 Flow Rate FiO2 12/03/16 13:30 101.5 120 36 82/22 98 Mechanical Ventilator 12/03/16 13:00 50 12/03/16 06:30 5.0 Exam Ventilator settings; assist control 14 , tidal volume 500, PEEP of 5, 100% FiO2 H EENT examination; supple neck, no JVD. No lymphadenopathy. Tracheostomy in place. Insertion site is clean. Pupils are midsize and reactive to light. Chest examination; clear to auscultation bilaterally. S1-S2 audible. Tachycardic. Regular rhythm. Next Abdomen examination; soft, normal distention. No organomegaly. G-tube in place. Bowel sounds are sluggish. Next Extremity examination; no peripheral edema. ELECTRICAL SOFTWARE ENGINEER examination; patient currently not following any commands. Assessment and recommendations; 1. Patient admitted with severe sepsis from UTI. 2. Chest x-ray was reviewed which is essentially clear. Next 3. History of intracranial bleed with REGIONAL ENGINEER shunt. Next 4. Acute renal injury. Likely from hypoperfusion. 5. History of diabetes. 6. History of sacral decubitus ulcer. Results Result Diagram: 12/03/16 0730 12/03/16 1200 Results 24 hrs Laboratory Tests Test 12/02/16 23:30 12/02/16 23:40 12/03/16 01:00 12/03/16 05:33 Urine Bilirubin NEGATIVE Urine Clarity CLEAR Urine Color LT. YELLOW Urine Glucose NEGATIVE Urine Hemoglobin 3+ H Urine Ketones NEGATIVE Urine Leukocyte Esterase 3+ H Urine Microscopic RBC >200 Urine Microscopic WBC >50 Urine Nitrite NEGATIVE Urine Other FEW Urine Specific [place] 1.010 Urine Squamous Epithelial Cells FEW Urine Total Protein 1+ H Urine Urobilinogen 0.2 E.U./dL Urine pH 5.5 Activated Partial Thromboplast Time 33.8 Alanine Aminotransferase (ALT/SGPT) 69 Albumin 4.1 Albumin/Globulin Ratio 0.89 Alkaline Phosphatase 158 H Anion Gap 32 H Aspartate Amino Transf (AST/SGOT) 63 H Basophils # 0.0 Basophils % 0.0 Blood Morphology Comment Blood Urea Nitrogen 135 H Calcium Level 10.4 H Carbon Dioxide Level 24 Chloride Level 107 Creatinine 4.13 H Direct Bilirubin 0.00 Eosinophils # 0.0 Eosinophils % 0.0 Globulin 4.60 H Glucose Level 296 H Hematocrit 43.9 Hemoglobin 14.6 INR International Normalized Ratio 1.40 Indirect Bilirubin 0.2 Lactic Acid Level 5.9 *H 3.6 H 3.4 H Lymphocytes # 1.0 Lymphocytes % 4.8 L Mean Corpuscular Hemoglobin 32.6 Mean Corpuscular Hemoglobin Concent 33.2 Mean Corpuscular Volume 98.3 Mean Platelet Volume 9.1 Monocytes # 1.1 H Monocytes % 5.5 Neutrophils # 18.0 H Neutrophils % 89.7 H Nucleated Red Blood Cells # 0.0 Nucleated Red Blood Cells % 0.0 Platelet Count 493 H Potassium Level 5.7 H Prothrombin Time 17.2 H Prothrombin Time Ratio 1.3 Red Blood Count 4.47 L Red Cell Distribution Width 14.6 H Sodium Level 157 H Total Bilirubin 0.2 Total Protein 8.7 H Troponin I 0.114 White Blood Count 20.0 H Test 12/03/16 07:07 12/03/16 07:30 12/03/16 07:31 12/03/16 11:05 Arterial Blood HCO3 16.9 L Arterial Blood Base Excess -8.2 L Arterial Blood Oxygen Saturation 99.0 H Demetrio Test N/A Arterial Blood Gas Puncture Site Femoral Arterial Blood Carboxyhemoglobin 0.3 Arterial Blood Date Drawn 12/03/2016 1:04:18 PM Arterial Blood Methemoglobin 0.4 Arterial Blood pCO2 (Temp correct) 33.5 L Arterial Blood pH (Temp corrected) 7.320 L Arterial Blood pO2 (Temp corrected) 209.8 H Blood Gas A-a O2 Differential 469.7 H Blood Gas Actual Respiration Rate 36 Blood Gas Critical Value Read Back DR. Damon ALVARADO Blood Gas Inspiratory Pressure 26.0 Blood Gas Low PEEP Setting 5.0 Blood Gas Modality VENT - AC Blood Gas Notified Time 11/26/2016 1:12:26 PM Blood Gas Notified Whom TRINH NO Blood Gas Respiration Rate 16.0 Blood Gas Specimen Source Blood arterial Blood Gas Temperature 37.0 Blood Gas Tidal Volume 500.0 FiO2 100.0 Oxyhemoglobin Percent 98.3 Total Hemoglobin 13.8 Alanine Aminotransferase (ALT/SGPT) 223 H Albumin 3.5 Albumin/Globulin Ratio 1.02 Alkaline Phosphatase 123 H Anion Gap 29 H Aspartate Amino Transf (AST/SGOT) 189 #H Basophils # 0.0 Basophils % 0.3 Blood Urea Nitrogen 152 H Calcium Level 9.2 Carbon Dioxide Level 20 L Chloride Level 112 H Creatinine 4.60 H Differential Comment AUTO w/SCAN Direct Bilirubin 0.00 Eosinophils # 0.0 Eosinophils % 0.0 Globulin 3.40 H Glucose Level 347 H Hematocrit 41.8 L Hemoglobin 13.9 L Hemoglobin A1c 6.0 H Indirect Bilirubin 0.3 Lymphocytes # 1.3 Lymphocytes % 9.0 L Magnesium Level 3.7 H Mean Corpuscular Hemoglobin 32.7 Mean Corpuscular Hemoglobin Concent 33.3 Mean Corpuscular Volume 98.2 Mean Platelet Volume 9.0 Monocytes # 1.0 H Monocytes % 6.9 Neutrophils # 12.0 H Neutrophils % 83.8 H Nucleated Red Blood Cells # 0.0 Nucleated Red Blood Cells % 0.0 Platelet Count 407 Potassium Level 5.9 H Red Blood Count 4.26 L Red Cell Distribution Width 14.2 Sodium Level 155 H Total Bilirubin 0.3 Total Protein 6.9 # White Blood Count 14.4 #H Bedside Glucose 337 H Urine Bacteria FEW Urine Bilirubin 1+ H Urine Clarity CLEAR Urine Color RED Urine Glucose NEGATIVE Urine Hemoglobin 3+ H Urine Ictotest NEGATIVE Urine Ketones TRACE Urine Leukocyte Esterase 3+ H Urine Microscopic RBC >200 Urine Microscopic WBC 10-25 Urine Nitrite NEGATIVE Urine Random Creatinine 31.50 Urine Random Sodium 119 H Urine Specific [place] 1.020 Urine Squamous Epithelial Cells FEW Urine Total Protein Urine Urobilinogen 1.0 E.U./dL Urine pH 6.5 Test 12/03/16 12:00 12/03/16 12:17 Anion Gap 30 H Blood Urea Nitrogen 154 H Calcium Level 9.1 Carbon Dioxide Level 20 L Chloride Level 112 H Creatinine 4.40 H Glucose Level 343 H Potassium Level 6.3 *H Sodium Level 156 H Bedside Glucose 222 H Medications Medications Current Medications Lorazepam (Ativan) 0.5 mg Q6H PRN IV ANXIETY; Start 12/03/16 at 07:00 Ondansetron HCl (Zofran Inj) 4 mg Q6H PRN IV NAUSEA AND/OR VOMITING; Start at 07:00 Acetaminophen (Tylenol Supp) 650 mg Q6H PRN MO PAIN LEVEL 1-3 OR FEVER Last administered on 12/03/16 12:31; Admin Dose 650 MG; Start 12/03/16 at 07:00 Famotidine 20 mg 20 mg DAILY IV Last administered on 12/03/16 08:42; Admin Dose 20 MG; Start 12/03/16 at 09:00 Cefepime HCl (Maxipime 1gm/50 ml (Pmx)) 50 ml @ 100 mls/hr 21 IVPB ; Start at 21:00 Insulin Glargine (Lantus) 15 unit DAILY@08 SC Last administered on 12/03/16 07 :37; Admin Dose 15 UNIT; Start 12/03/16 at 07:00 Miscellaneous Information 1 ea NOTE XX ; Start 12/03/16 at 07:30 Glucose (Glutose) 15 gm Q15M PRN PO DECREASED GLUCOSE; Start 12/03/16 at 07:30 Glucose (Glutose) 22.5 gm Q15M PRN PO DECREASED GLUCOSE; Start 12/03/16 at 07: 30 Dextrose (D50w Syringe) 25 ml Q15M PRN IV DECREASED GLUCOSE; Start 12/03/16 at 07:30 Dextrose (D50w Syringe) 50 ml Q15M PRN IV DECREASED GLUCOSE; Start 12/03/16 at 07:30 Glucagon (Glucagen) 1 mg Q15M PRN IM DECREASED GLUCOSE; Start 12/03/16 at 07:30 Glucose 15 gm 15 gm Q15M PRN BUCCAL DECREASED GLUCOSE; Start 12/03/16 at 07:30 Sodium Chloride (1/2 NS) 1,000 ml @ 150 mls/hr Q6H40M IV Last administered on 12/03/16t 10:55; Admin Dose 125 MLS/HR; Start 12/03/16 at 11:00 BLU LARSEN Dec 03, 2016 14:06
--- NOTE | 2016-12-03 16:00 | CONS ---
DATE OF ADMISSION: 12/02/2016 DATE OF CONSULTATION: 12/03/2016 TYPE OF CONSULTATION: Infectious Disease. REASON FOR CONSULTATION: Antibiotic management. HISTORY OF PRESENT ILLNESS: Frederick Anthony is 51-year-old male who is brought to the [facility] for fever and hematuria. His past problems inclu de: 1. Respiratory failure, status post tracheostomy. 2. Ventilator-dependent respiratory failure. 3. Diabetes. 4. Quadriplegia. 5. Hypertension. 6. Hydrocephalus. 7. Sacral decubitus ulcer. 8. Hematuria. The patient was brought to the emergency room febrile to 103.3. White count of 20,000. He is tachy cardic at 139 with labored respirations and a respiratory rate of 40. BP was 113/91. His sodium wa s 157, potassium 5.7, BUN and creatinine 135/4.13, glucose 96. Lactic acid 5.9. The third one was 3.4. Chest x-ray showed low lung volumes, bibasilar discoid atelectasis. The patient was started o n vancomycin and cefepime. His urinalysis was consistent with UTI. PAST MEDICAL HISTORY: A 12-point review of systems was done and was negative. PAST MEDICAL HISTORY: Operations as outlined. FAMILY HISTORY: Noncontributory. SOCIAL HISTORY: He does not smoke, drink, or abuse drugs. ALLERGIES: NONE TO PENICILLIN, SULFA, OR FOODS. MEDICATIONS: Per chart. REVIEW OF SYSTEMS: As per HPI. PHYSICAL EXAMINATION: GENERAL: The patient is a chronically ill-appearing male, who is somewhat obtunded, on a respirato r. VITAL SIGNS: T-max of 103.3. SKIN: Without generalized rash. HEENT: Intubated. Pupils are equal, round, reactive to light. NECK: Supple. LYMPH NODES: None palpable. CHEST: Decreased breath sounds at the bases. HEART: Tachycardic with regular rhythm. ABDOMEN: Soft, nontender. G-tube in place. Bowel sounds are present. No organosplenomegaly or ma sses. NEUROLOGIC: Patient is quadriplegic. He also is obtunded. IMPRESSION AND PLAN: Patient presents with severe sepsis secondary to urinary tract infection, diony l failure, chronic trache-dependent respiratory failure. Patient was tested for influenza, and A an d B were negative. He is on cefepime and vancomycin. Will await the laboratory reports. His white count today is 14.4, down from 20. His urine which showed 3+ leukocyte esterase and greater than 2 00 white cells per high-powered field, so he does have a UTI. His BUN and creatinine are still elev ated at 30 and 1.54. Potassium was up to 6.3. Will probably require some Kayexalate. Blood cultur es were done. Urine cultures were done. I will dictate my findings to the hospitalist. Dictated By: CARLOS JAIME MD, JD/VIOLET Conf#: [id number] DID#: [id number]
[2016-12-03 17:00] VITALS: BP 138/118; PULSE 97; TEMP 99
[2016-12-03 17:10] VITALS: RESP 38
--- NOTE | 2016-12-03 17:51 | RADRPT ---
PROCEDURE: XR Chest. CLINICAL INDICATION: PICC line placement TECHNIQUE: Single frontal view of the chest was obtained COMPARISON: 12/02 FINDINGS: There is a new right-sided PICC line in place with its tip overlying the cavoatrial junction. The heart, mediastinum, and lungs are unchanged. The heart is normal in size. There is a mild right lower lobe infiltrate. There is a tracheostomy tube and a right-sided TAPE MAKING MACHINE OPERATOR shunt catheter in place. RPTAT: AA IMPRESSION: New PICC line in appropriate position. .Mao Razo MD, MD Date Time Electronically viewed and signed by .Mao Razo MD, MD on 12/03/2016 17:51 .S/
--- NOTE | 2016-12-03 17:53 | RADRPT ---
PROCEDURE: Ultrasound guidance for placement of needle in right upper extremity vein. CLINICAL INDICATION: Venous access. TECHNIQUE: Limited sonography of the right upper extremity was performed. Ultrasound images were recorded and stored in the patient's medical record. COMPARISON: None. FINDINGS: The ultrasound images demonstrate a patent right upper extremity vein. The PICC line was inserted b y the PICC line nurse. IMPRESSION: 1. Ultrasound guidance for a needle placement in a right upper extremity vein. 2. The visualized right upper extremity vein is patent. RPTAT: QQ .David Singh MD, MD Date Time Electronically viewed and signed by .David Singh MD, MD on 12/03/2016 17:52 .R/
[2016-12-03] MEDS ORDERED: AMIODARONE 150 MG INJ ONE (18:09)
--- NOTE | 2016-12-03 18:53 | CONS ---
DATE OF ADMISSION: 12/02/2016 DATE OF CONSULTATION: 12/03/2016 REQUESTING PHYSICIAN: Dr. Marroquin Dear Dr. Marroquin: Thank you for asking me to see this patient in urological consultation. HISTORY OF PRESENT ILLNESS: This is a 51-year-old male who is a resident of [facility] and [place] [facility] [place] fever and hematuria. Therefore, a uro logical consultation was requested. The patient, himself, is not capable of giving any history. He is a quadriplegic and has hydrocephalus and has a tracheostomy and is a ventilator dependent patien t. He has respiratory failure and the tracheostomy. He also does have sacral decubitus ulcer, hist ory of hypertension, and diabetes. Upon his admission, his temperature was 103.3. His white blood count was 20,000. His creatinine was 4.13 and BUN was 135. The patient's renal function has been n ormal before in October. SOCIAL HISTORY: Does not smoke, does not drink alcohol, and there is no history of drug abuse. ALLERGIES: HE IS NOT ALLERGIC TO ANY MEDICATIONS. MEDICATIONS: Presently he is on: 1. Cefepime. 2. Norepinephrine and titrated. 3. Pepcid. 4. Insulin. 5. Lorazepam. 6. Zofran. 7. Vancomycin. 8. Xopenex. PHYSICAL EXAMINATION: GENERAL: Reveals a 51-year-old male who is on a respirator. He is cachectic. He weighs only 55 kg . His height is 68 inches. VITAL SIGNS: The temperature is 99.0, pulse is 97, respirations 36, blood pressure 138/118. ABDOMEN: Soft. GENITOURINARY: The external genitalia, he does have an indwelling Fink catheter that is not draini ng much and the urine in the tubing is blood-tinged. The testes are normal. EXTREMITIES: Lower extremities are cachectic and there is no edema. LABORATORY DATA: CBC on admission shows a white count of 20,000; hemoglobin 14.6. When it was repe ated today, his hemoglobin is 13.9, hematocrit 41.8, white count 14.4. The BUN today 154, creatinin e 4.40. Sodium 156, potassium 6.3, chloride 112, CO2 of 20. Urine culture has been ordered and it is in process. IMPRESSION: Gross hematuria, most likely infection, and the patient is septic. The recommendation is to keep the Fink catheter in. The patient is already on antibiotic and urine culture has alread y been sent. I did hand irrigate the Fink catheter to make sure that it is in good position and in deed it does irrigate well. There is no urine inside the bladder. Whatever I irrigated in, I was a ble to withdraw it and it was clear. There was no active bleeding in the bladder. I will follow hi s urological problem with you. I do thank you for allowing me to help in his care. Dictated By: ADDY FAUSTIN MD BB/NTS Conf#: [id number] DID#: [id number] CC: STANISLAV MARROQUIN MD;*EndCC*
[2016-12-03] MEDS ORDERED: SOD CHLORIDE 0.9% 100 ML ONE (19:00)
[2016-12-03] MEDS ORDERED: CEFEPIME 1GM/50 ML (PMX) 50 ML IVPB SCH (21:00)
--- NOTE | 2016-12-04 02:31 | QN ---
Documentation Comment CPR note: Mr. Anthony went into Vfib on monitor and CPR was immediately initiated at 1806. Defibrilator charge, epinephrine given, shock delivered. As soon as compressions started dark brown liquid began spurting and pouring out of trache site, mouth. Calcium chrolide, amiodarone 300, Magnesium 1 g given. High quality CPR continued throughout. Bicarb, lidocaine, and multiple doses of epinephrine administered. NG tube was placed and copious, thick dark brown fluid was suctioned. All subsequent rhythms were asystole on two separate monitors. Did not regaine pulses. Compliance through bag, trache ventilation was good. Limited cardiac ultrasound performed at 1820 showed no cardiac motion. Family had been called and arrived. The were updated and brought into the patient room. At 1828 the family did not want CPR continued. Resuscitation was stopped. No pulses. Asystole. I reviewed labs during code and patient's potassium and lactate had been improving. There had been no evidence of a GI bleed until this code. Pulmonary suction through trache yielded only scan, clear mucus. Dark brown liquid from stomach had the appearance of GI bleeding. Occult GI bleeding may have led to patients deterioration and sudden Vfib arrest. MS and PE are also considerations. ROS VICKERS DO Dec 04, 2016 02:31
[2016-12-05 17:17] LABS: MICROALBUMIN 11.9 mg/dL
--- NOTE | 2016-12-06 16:36 | DES ---
DATE OF ADMISSION: 12/03/2016 DATE OF EXPIRATION: 12/03/2016 TIME OF EXPIRATION: 1828 p.m. PRIMARY CAUSE OF : Cardiopulmonary arrest from ventricular fibrillation. SECONDARY CAUSES OF : 1. Ventricular fibrillation, 12/03/2016 2. Acute oliguric kidney injury, 12/03/2016. 3. Sepsis secondary to underlying urinary tract infection, 12/03/2016. 4. Hyperkalemia, 12/03/2016. 5. Hypernatremia, 12/03/2016. 6. Septic shock, 12/03/2016. 7. Lactic acidosis, 12/03/2016. 8. Acute on chronic respiratory failure, 12/03/2016. 9. Gross hematuria, 12/03/2016. 10. Metabolic acidosis, 12/03/2016. 11. Gastrointestinal bleeding, FINAL DIAGNOSES: 1. Sepsis secondary to underlying urinary tract infection. 2. Sepsis with underlying septic shock. 3. Acute on chronic respiratory failure. 4. Acute oliguric kidney injury. 5. Lactic acidosis. 6. Hypernatremia. 7. Type 2 diabetes mellitus. 8. Dysphagia, status post percutaneous endoscopic gastrostomy tube placement. 9. Essential hypertension. 10. History of hydrocephalus, status post ventriculoperitoneal shunting. 11. History of hemorrhagic stroke with right hemiplegia. 12. Pressure ulcers. 13. Gross hematuria. 14. Gastrointestinal bleeding. 15. Gram positive bacteremia. CONSULTATIONS: 1. Dr. Yusuf Penaloza, pulmonary/critical care medicine. 2. Dr. Javier Salomon, nephrology. 3. Dr. Darnell Cherry, infectious disease. 4. Dr. Ken Gallego, nephrology. HOSPITAL COURSE: This is a 51-year-old male patient with multiple comorbidities who was a resident at [facility] and was brought to the emergency room because of fevers and hematuria. In the emergency room, the patient was noticed to have a leukocytosis with a WBC of 20. The patient was also noticed to be febrile with a temperature as high as 103.3 degrees Fahrenheit. The patient was also noticed to have underlying lactic acidosis. The patient was noticed to be in acute renal failure. The patient also had gross hematuria. Provided the patient's history of present illness, his comorbidities, and the diagnostic findings, a clinical decision was made to admit the patient to inpatient setting to have him further evaluated. The patient was admitted to inpatient setting. Initially, the patient was scheduled to be admitted to the telemetry floor. However, during the course of the patient's ER stay, the patient became hypotensive secondary to underlying septic shock. Hence, the patient had to be started on IV pressors. Hence, the patient was scheduled to go to the intensive care unit. Meanwhile, the patient was noticed to have worsening hyperkalemia with potassium as high as 6.3, most probably secondary to underlying acute kidney injury. The patient previously had a normal kidney function. The etiology of the patient's acute kidney injury remained unclear. The plan was to start the patient on emergent hemodialysis. The patient also had evidence of sepsis with septic shock. The patient had to be started on IV pressors for management of blood pressure. The patient had enough IV boluses given for supporting blood pressure and for underlying sepsis. Infectious disease consult was called on this patient for antibiotic management. Pancultures were sent. Influenza A and B screen was negative. The patient had gross hematuria. The patient was evaluated by urology. The patient's H and H remained stable. The patient has underlying type 2 diabetes mellitus. The patient was maintained on sliding scale insulin. The patient's condition was gradually deteriorating with worsening electrolyte imbalances and worsening respiratory distress along with worsening hemodynamic status. The patient's family/ wanted the patient to remain a FULL CODE. On 12/03/2016, the patient was noticed to have dropping of heart rate. The patient was noticed to have weak pulses. Later the patient was noticed to be in V. fibrillation. ACLS protocol was initiated at 1806. The patient was defibrillated. After multiple rounds of ACLS protocol, the patient remained in asystole. During the process an NG tube was placed and copious, thick dark brown fluid was suctioned. The patient was declared at 1828 on 2016. The patient's family was informed about the patient's expiration. PERTINENT LABORATORY AND DIAGNOSTIC DATA: 1. Latest CBC: WBC 14.4, hemoglobin 13.9, hematocrit 41.8, platelet 477. 2. Latest BMP: Sodium 156, potassium 5.9, chloride 112, carbon dioxide 20, anion gap 13, BUN 154, creatinine 4.4, glucose 222, calcium 9.1. 3. Hemoglobin A1c 6.0. 4. Blood gas that was done on 100% FIO2 via AC mode ventilation: pH 7.320, pCO2 of 3.5, pO2 of 209.8, bicarbonate 16.9, oxygen saturation 99.0, base excess -8.2. 5. Urinalysis: Urine nitrate negative, urine leukocyte esterase 3+, urine microscopic WBC greater than 50. 6. Renal ultrasound. Unremarkable retroperitoneal ultrasound. 7. Chest x-ray. Tracheostomy tube and right central venous catheter in place. Low lung volumes and bibasilar discoid atelectasis. At this time, I would like to thank all the consultants for seeing the patient, doing the necessary procedures, and providing clinical recommendations. The case and management of this patient was fully discussed with Dr. Pro. STAR PRO MD, AM/VIOLET Conf#: [id number] DID#: [id number]
== END 2016-12-03 21:40 | disposition expired ==
LOC: E/R 22:42
DX: A41.9 Sepsis, unspecified organism (principal); I10 Essential (primary) hypertension; E11.9 Type 2 diabetes mellitus without complications; Z79.84 Long term (current) use of oral hypoglycemic drugs
CPT/HCPCS: 36415; 36569; 36600; 71010; 76775; 76937; 80048; 80053; 81001; 81003; 82043; 82803; 82962; 83036; 83605; 83735; 84132; 84145; 84155; 84300; 84439; 84484; 85025; 85610; 85730; 87040; 87086; 87400; 93005; 94002; 96361; 96365; 96366; 96372; 96375; 96376; 99291; J0282; J0692; J1815; J2060; J3370; J7030; J7070